=== PATIENT | female | born 1985 | race Caucasian/White ===

== ENCOUNTER 2018-01-17 02:12 | Emergency (ER) | payer OTHER ==
[~2018-01-17] VITALS: Ht 185.4 cm; Wt 59.0 kg
[~2018-01-17 02:12] MED LIST: ALBUTEROL NEB; ALBUTEROL2.5 MG/31 IH; FISH OIL 1,001000 M2 PO; HORMONE REPLACEMENT; MESTINON60 MG; MIDODRINE HCL 55 M1; NORCO 5-325 TA1 EACH PO; PREDNISONE50 MG PO; PRENATAL; PROAIR HFA8.5 GM IH; PROVENTIL IH; SINGULAIR; SINGULAIR 10 MG10 M1; ULTRAM 50MG TAB50 MG PO; UNICOMPLEX M TA1 TA1 PO; VITAMIN D1000 UNI1 PO; ZPAK PO
[2018-01-17 03:30] LABS: CALCIUM 8.6 mg/dL (8.5-10.1); CREATININE 0.6 mg/dL (0.6-1.3); POTASSIUM 3.7 mmol/L (3.5-5.1)
[2018-01-17 03:50] VITALS: BP 106/72
== END 2018-01-17 03:50 | disposition home or self-care (01) ==
LOC: M.ERS 02:12
PROVIDERS: Emergency Medicine
DX: R51 Headache (principal); J45.909 Unspecified asthma, uncomplicated; Z90.89 Acquired absence of other organs; Z88.0 Allergy status to penicillin

== ENCOUNTER 2018-05-31 16:49 | Emergency (ER) | payer OTHER ==
[~2018-05-31] VITALS: Ht 160 cm; Wt 58.1 kg
[2018-05-31] MEDS ORDERED: CO Q-1010 MG PO (17:24)
[2018-05-31] MEDS ORDERED: L-GLUTAMINE25 G1 PO (17:24)
[2018-05-31] MEDS ORDERED: VITAMIN D1000 UNI1 PO (17:25)
[2018-05-31] MEDS ORDERED: BIOTIN1 M1 PO (17:25)
[2018-05-31] MEDS ORDERED: 5-HTP50 MG PO (17:25)
[2018-05-31] MEDS ORDERED: DHEA25 MG PO (17:25)
[2018-05-31] MEDS ORDERED: TYROSINE PO (17:26)
[2018-05-31 18:03] LABS: URINE BILIRUBIN NEGATIVE (Negative); URINE BLOOD NEGATIVE (Negative); URINE CLARITY CLEAR; URINE COLOR YELLOW; URINE GLUCOSE-RANDOM NEGATIVE (Negative); URINE LEUKOCYTES-REFLEX NEGATIVE (Negative); URINE NITRITE-REFLEX NEGATIVE (Negative); URINE PROTEIN NEGATIVE (Negative); URINE UROBILINOGEN 0.2 E.U./dl (0.2-1.0)
[2018-05-31 18:06] LABS: URINE KETONES 3+ (Negative)
[2018-05-31 18:08] LABS: ACETEST (KETONE CONFIRMATORY) Large (Negative)
[2018-05-31] MEDS ORDERED: PHENERGAN 25 MG25 MG PO (18:20)
[2018-05-31] MEDS ORDERED: BENTYL 20 MG TA20 M1 PO (18:21)
[2018-05-31 18:31] VITALS: BP 100/67
== END 2018-05-31 18:32 | disposition home or self-care (01) ==
LOC: M.ERS 16:49
PROVIDERS: Nurse Practitioner
DX: B34.9 Viral infection, unspecified (principal); J45.909 Unspecified asthma, uncomplicated; Z98.890 Other specified postprocedural states; Z88.0 Allergy status to penicillin

== ENCOUNTER 2019-08-14 23:26 | Emergency (ER) | payer OTHER ==
[~2019-08-14] VITALS: Ht 157.5 cm; Wt 61.2 kg
[~2019-08-14 23:26] MED LIST changes: +5-HTP50 MG PO; +BENTYL 20 MG TA20 M1 PO; +BIOTIN1 M1 PO; +CO Q-1010 MG PO; +DHEA25 MG PO; +L-GLUTAMINE25 G1 PO; +PHENERGAN 25 MG25 MG PO; +TYROSINE PO
[2019-08-14] MEDS ORDERED: CYTOMEL 5MCG TA5 MCG PO (23:43)
[2019-08-14] MEDS ORDERED: MIDODRINE HCL 55 M1 PO (23:44)
[2019-08-14] MEDS ORDERED: MESTINON60 MG PO (23:44)
[2019-08-15 01:58] VITALS: BP 98/67
== END 2019-08-15 01:58 | disposition home or self-care (01) ==
LOC: M.ERS 23:26
DX: R09.89 Other specified symptoms and signs involving the circulatory and respiratory systems (principal); J45.909 Unspecified asthma, uncomplicated; Z98.890 Other specified postprocedural states; Z88.0 Allergy status to penicillin